=== PATIENT | male | born 1950 | race Caucasian/White ===

== ENCOUNTER 2019-05-11 12:42 | Outpatient (CLI) | payer MEDICARE ==
--- NOTE | 2019-05-11 14:49 | MRI ---
MRI LUMBAR SPINE WITHOUT CONTRAST: Date: 05/11/2019 INDICATION: Low back pain. History of remote back injury. Comparison made to sacral images from 2013 which does image the L4 and L5 vertebra. L4 compression de formity was present at that time. FINDINGS: Compression of L4 vertebra is again seen and this does not appear significantly changed from 2013 exa m. There is no edema within this vertebra, also indicating a stable compression injury. There is retr opulsion at this level. The other lumbar vertebra maintain height and alignment. Degenerative disc changes are prominent at L 4-5 and at L5-S1. Findings at each disc level are described. At T12-L1, mild diffuse disc bulge flattens the thecal sac. Facet hypertrophy. Mild central canal linwood nosis. At L1-2, broad based disc bulge is present. Moderate facet and ligamentous hypertrophy. Mild to moder ate central canal stenosis. At L2-3, diffuse disc bulge with minimal anterolisthesis. Prominent posterior hypertrophic changes. T hese changes result in severe central canal stenosis. Bilateral foraminal narrowing more pronounced o n the left. At L3-4, there is diffuse disc bulge associated with retropulsion of the posterior superior corner or L4. Prominent facet hypertrophy. These changes result in severe central canal stenosis. Mild foramin al narrowing bilaterally due to the disc bulge and hypertrophic change. At L4-5, there is broad based bulge. Slight posterolisthesis. Moderate facet and ligamentous hypertro phy. Moderate central canal stenosis. Bilateral foraminal stenosis. At L5-S1, there disc protrusion centrally. Facet hypertrophy. Mild central canal stenosis. Bilateral foraminal stenosis. IMPRESSION: 1. Compression deformity at L4 with mild retropulsion is a stable compression injury and was present on films dating to 2013. 2. Disc bulges associated with posterior hypertrophic changes are present at multiple levels resulti ng in severe central canal stenosis at L2-3, L3-4, and L4-5 as described above. Foraminal stenosis is also present at several levels as noted above. POS: GURMEET
== END 2019-05-11 12:43 | disposition home or self-care (01) ==
LOC: SCSMRI 12:42
PROVIDERS: ATTEND Family Medicine
DX: M41.9 Scoliosis, unspecified (principal); M54.5 Low back pain; G89.29 Other chronic pain; M51.9 Unspecified thoracic, thoracolumbar and lumbosacral intervertebral disc disorder; M48.061 Spinal stenosis, lumbar region without neurogenic claudication; M48.07 Spinal stenosis, lumbosacral region
CPT/HCPCS: 72148

== ENCOUNTER 2022-05-06 15:11 | Outpatient (CLI) | payer MEDICARE | END 2022-05-06 15:12 | disposition home or self-care (01) | LOC: SCSRAD 15:11 | PROVIDERS: ATTEND Surgery | DX: R29.4 Clicking hip (principal); M54.16 Radiculopathy, lumbar region; M47.816 Spondylosis without myelopathy or radiculopathy, lumbar region; M51.36 Other intervertebral disc degeneration, lumbar region; R29.890 Loss of height; G35 Multiple sclerosis; M51.37 Other intervertebral disc degeneration, lumbosacral region; M43.16 Spondylolisthesis, lumbar region; M25.852 Other specified joint disorders, left hip; M16.12 Unilateral primary osteoarthritis, left hip; M25.80 Other specified joint disorders, unspecified joint; S32.049D Unspecified fracture of fourth lumbar vertebra, subsequent encounter for fracture with routine healing | CPT/HCPCS: 72110; 72170 ==